=== PATIENT | female | born 1965 | race Caucasian/White ===

== ENCOUNTER 2017-04-04 09:02 | Outpatient (CLI) | payer BC ==
[~2017-04-04] VITALS: Ht 162.6 cm; Wt 79.4 kg
[~2017-04-04 09:02] MED LIST: ANUSOL PR; IBUPROPHEN PO; LIDOCAINE 2% INJ 100 MG/5 ML SDV (FOR ANES.) As Ordered ONE; MULT1TAB10 PO; NS 1,000 ML IV ONE; PROPOFOL 200 MG/20 ML VIAL As Ordered ONE; SYNT25TA PO; [UNRECOGNIZED DRUG - OTHER]; motrin PO; vicodin PO
--- NOTE | 2017-04-04 10:32 | ROOR ---
Patient Name: Ruth Ann Mccabe Procedure Date: 04/04/2017 10:16 AM Date of : 1965 Age: 51 Room: [facility] Gender: Female Note Status: Finalized Procedure: Colonoscopy Indications: Screening for colorectal malignant neoplasm Providers: Dariel Stapleton Jr, MD Referring MD: Lenora Siddiqui DO Requesting Provider: Medicines: Propofol per Anesthesia Complications: No immediate complications. Procedure: Pre-Anesthesia Assessment: - Prior to the procedure, a History and Physical was performed, and patient medications and allergies were reviewed. The patient is competent. The risks and benefits of the procedure and the sedation options and risks were discussed with the patient. All questions were answered and informed consent was obtained. Patient identification and proposed procedure were verified by the physician and the nurse in the pre-procedure area and in the procedure room. Mental Status Examination: alert and oriented. Airway Examination: normal oropharyngeal airway and neck mobility. Respiratory Examination: clear to auscultation. CV Examination: normal. ASA Grade Assessment: II - A patient with mild systemic disease. After reviewing the risks and benefits, the patient was deemed in satisfactory condition to undergo the procedure. The anesthesia plan was to use moderate sedation / analgesia (conscious sedation). Immediately prior to administration of medications, the patient was re-assessed for adequacy to receive sedatives. The heart rate, respiratory rate, oxygen saturations, blood pressure, adequacy of pulmonary ventilation, and response to care were monitored throughout the procedure. The physical status of the patient was re-assessed after the procedure. The Colonoscope was introduced through the anus and advanced to the cecum, identified by appendiceal orifice and ileocecal valve. The colonoscopy was performed without difficulty. The patient tolerated the procedure well. The quality of the bowel preparation was adequate and good. Findings: The rectum, sigmoid colon, descending colon, transverse colon, ascending colon, cecum, appendiceal orifice and ileocecal valve appeared normal. Impression: - The rectum, sigmoid colon, descending colon, transverse colon, ascending colon, cecum, appendiceal orifice and ileocecal valve are normal. - No specimens collected. Recommendation: - Discharge patient to home (ambulatory). - Repeat colonoscopy in 10 years for screening purposes. Dariel Stapleton MD Dariel Stapleton Jr, MD 04/04/2017 10:32:30 AM This report has been signed electronically. Number of Addenda: 0 Note Initiated On: 04/04/2017 10:16 AM Estimated Blood Loss: Estimated blood loss: none.
[2017-04-04 10:55] VITALS: BP 129/75
== END 2017-04-04 11:20 | disposition home or self-care (01) ==
LOC: M OPP 09:02
PROVIDERS: ATTEND Surgery
DX: Z12.11 Encounter for screening for malignant neoplasm of colon (principal); E03.9 Hypothyroidism, unspecified; E78.5 Hyperlipidemia, unspecified; Z88.8 Allergy status to other drugs, medicaments and biological substances; Z79.899 Other long term (current) drug therapy; Z80.9 Family history of malignant neoplasm, unspecified

== ENCOUNTER → 2018-04-09 | Outpatient (REF) | payer BC ==
[2018-04-09 18:16] LABS: VITAMIN B12 LEVEL 422 PG/ML (247-911)
== END ==
LOC: M LAB REF 17:24
DX: R20.2 Paresthesia of skin (principal)

== ENCOUNTER → 2018-10-16 | Outpatient (REF) | payer BC ==
[~2018-10-16] MED LIST changes: -LIDOCAINE 2% INJ 100 MG/5 ML SDV (FOR ANES.) As Ordered ONE; -NS 1,000 ML IV ONE; -PROPOFOL 200 MG/20 ML VIAL As Ordered ONE
[2018-10-16 17:59] LABS: INFLUENZA A AMPLIFICATION POSITIVE (NEGATIVE); INFLUENZA B AMPLIFICATION NEGATIVE (NEGATIVE)
[2018-10-19 09:09] LABS: ANTINUCLEAR ANTIBODIES DIRECT Negative (Negative); CYCLIC CITRULLINATED PEPTIDE 6 units (0-19)
== END ==
LOC: M LAB REF 16:39
PROVIDERS: ATTEND Internal Medicine
DX: M25.50 Pain in unspecified joint (principal); R05 Cough; R50.9 Fever, unspecified

== ENCOUNTER → 2019-06-01 | Outpatient (REF) | payer BC ==
[2019-06-03 00:07] LABS: ANTINUCLEAR ANTIBODIES DIRECT Negative (Negative); CYCLIC CITRULLINATED PEPTIDE 8 units (0-19)
== END ==
LOC: M LAB REF 12:48
PROVIDERS: ATTEND Internal Medicine
DX: M25.50 Pain in unspecified joint (principal)

== ENCOUNTER 2020-12-25 20:48 | Inpatient (IN) | payer BC ==
[~2020-12-25] VITALS: Ht 162.6 cm; Wt 86.1 kg
[2020-12-25] MEDS ORDERED: METF-839 PO (20:57)
[2020-12-25] MEDS ORDERED: IBUP200C27 PO (21:02)
[2020-12-25] MEDS ORDERED: PEARCAP PO (21:02)
[2020-12-25 22:13] LABS: BASO # 0.1 10^3/uL (0.0-0.2); BASO % 0.4 % (0.0-1.0); EOS # 0.1 10^3/uL (0.0-0.5); EOS % 0.9 % (0.0-3.0); HEMATOCRIT 40.3 % (36.0-47.0); LYMPH # 1.9 10^3/uL (1.5-5.0); LYMPH % 14.5 % (24.0-44.0); MEAN CORPUSCULAR HEMOGLOBIN 28.6 pg (27.0-33.0); MEAN CORPUSCULAR HGB CONC 32.3 g/dl (32.0-36.5); MEAN CORPUSCULAR VOLUME 88.6 fl (80.0-96.0); MONO # 0.9 10^3/uL (0.0-0.8); MONO % 6.7 % (2.0-8.0); NEUTROPHILS % 77.2 % (36.0-66.0); PLATELET COUNT, AUTOMATED 258 10^3/uL (150-450); RED BLOOD COUNT 4.55 10^6/uL (4.00-5.40); WHITE BLOOD COUNT 12.9 10^3/uL (4.0-10.0)
[2020-12-25 22:38] LABS: ALBUMIN 4.3 GM/DL (3.2-5.2); ALT/SGPT 51 U/L (12-78); BILIRUBIN,DIRECT 0.1 MG/DL (0.0-0.2); BILIRUBIN,TOTAL 0.3 MG/DL (0.2-1.0); BLOOD UREA NITROGEN 13 MG/DL (7-18); CALCIUM LEVEL 10.1 MG/DL (8.5-10.1); CARBON DIOXIDE LEVEL 25 MEQ/L (21-32); CHLORIDE LEVEL 104 MEQ/L (98-107); CREATININE FOR GFR 0.95 MG/DL (0.55-1.30); GLOMERULAR FILTRATION RATE > 60.0 (>51); GLUCOSE, FASTING 174 MG/DL (70-100); LIPASE 53 U/L (73-393); POTASSIUM SERUM 3.6 MEQ/L (3.5-5.1); SODIUM LEVEL 138 MEQ/L (136-145); TOTAL PROTEIN 7.7 GM/DL (6.4-8.2)
[2020-12-25] MEDS ORDERED: MORPHINE 4 MG/ML 1ML VIAL/SYRINGE (J2270) IV ONE (22:55)
[2020-12-25] MEDS ORDERED: LR 1,000 ML IV ONE (22:55)
[2020-12-25] MEDS ORDERED: METOCLOPRAMIDE INJ 10MG/2ML VIAL (J2765 PER 1) IV ONE (22:55)
[2020-12-25] MEDS ORDERED: ONDANSETRON 4MG/2ML VIAL IV ONE (22:55)
[2020-12-25] MEDS: GASTROGRAFIN SOLUTION 30ML PO SCH ×2 (23:46→23:52)
[2020-12-26] MEDS ORDERED: ISOVUE-370 76% 100ML VIAL As Ordered ONE (01:21)
[2020-12-26] MEDS ORDERED: MORPHINE 2 MG/ML 1ML VIAL (J2270) IV ONE ×2 (01:30→02:20)
[2020-12-26] MEDS ORDERED: ONDANSETRON 4MG/2ML VIAL IV ONE ×2 (02:15)
--- NOTE | 2020-12-26 02:40 | REPVR ---
PROCEDURE INFORMATION: Exam: CT Abdomen And Pelvis With Contrast Exam date and time: 12/26/2020 1:48 AM Age: 55 years old Clinical indication: Abdominal pain; Localized; Right lower quadrant (rlq); Additional info: Rlq pain / r/p appendicitis TECHNIQUE: Imaging protocol: Computed tomography of the abdomen and pelvis with contrast. Radiation optimization: All CT scans at this facility use at least one of these dose optimization techniques: automated exposure control; mA and/or kV adjustment per patient size (includes targeted exams where dose is matched to clinical indication); or iterative reconstruction. Contrast material: ISOVUE 370; Contrast volume: 100 ml; Contrast route: INTRAVENOUS (IV); COMPARISON: No relevant prior studies available. FINDINGS: Liver: Fatty infiltration of the liver with areas of focal fatty sparing the left hepatic lobe. Gallbladder and bile ducts: Normal. No calcified stones. No ductal dilation. Pancreas: Normal. No ductal dilation. Spleen: Normal. No splenomegaly. Adrenal glands: Normal. No mass. Kidneys and ureters: Right perinephric stranding. Moderate right hydronephrosis. Delayed right nephrogram. No renal abscess evident. Stone in the left ureteropelvic junction measuring 7 x 4 x 8 mm. Mild thickening of the right renal pelvis. No left hydronephrosis. Benign-appearing cyst in the midpole of the left kidney measuring 8 mm. Stomach and bowel: Small sliding-type gastric hiatal hernia. No abnormal bowel dilatation. No abnormal bowel wall thickening. Oral contrast in the stomach and bowel. Negative for colonic diverticulitis. Appendix: Appendix is normal. Intraperitoneal space: Unremarkable. No free air. No significant fluid collection. Vasculature: Multiple phleboliths in the pelvis. No aortic aneurysm. Lymph nodes: Unremarkable. No enlarged lymph nodes. Urinary bladder: Bladder is decompressed. Reproductive: Status post hysterectomy. Bones/joints: Mild degenerative spine. No acute fracture. Soft tissues: Asymmetric glandular tissue in the breasts, right greater than left. Small umbilical hernia containing fat. There is no evidence of strangulation. IMPRESSION: 1. Acute obstructive right uropathy with ureteropelvic junction stone. 2. Mild thickening of the right renal pelvis. Suspicious for UTI. 3. Benign-appearing cyst in the lower pole of the left kidney. No follow-up is necessary. 4. Fatty infiltration of the liver with areas of focal fatty sparing the left hepatic lobe. 5. Asymmetric glandular tissue in the breasts, right greater than left. No definite mass lesion evident. Correlate with routine follow-up screening mammogram. COMMENTS: Consistent with the [employer]'s Incidental Findings Committee white paper (J Am Blake Radiol 2018): Any incidental renal lesion less than 1 cm or classified as too small to characterize, or any incidental cystic renal lesion characterized as simple-appearing, is likely benign. No follow-up imaging is recommended for these lesions per consensus recommendations based on imaging criteria. Electronically signed by: Miriam Esquivel On 12/26/2020 02:39:20 AM
[2020-12-26] MEDS ORDERED: NS 1,000 ML IV SCH ×2 (02:50→03:10)
[2020-12-26] MEDS ORDERED: TAMSULOSIN 0.4 MG CAP PO ONE (02:50)
[2020-12-26] MEDS ORDERED: KETOROLAC 30 MG/ML 1ML VIAL IV ONE (02:50)
[2020-12-26] MEDS ORDERED: CIPROFLOXACIN 400 MG in IV 1 EA IV ONE (03:05)
[2020-12-26] MEDS ORDERED: MAALOX 30 ML SUSP *UDC PO PRN (03:10)
[2020-12-26] MEDS ORDERED: MOM 30ML SUSPENSION UDC PO PRN (03:10)
[2020-12-26] MEDS ORDERED: ONDANSETRON 4MG/2ML VIAL IV PRN ×2 (03:10→05:30)
[2020-12-26] MEDS ORDERED: GLUCAGON INJ 1MG VIAL SC PRN (03:10)
[2020-12-26] MEDS ORDERED: MORPHINE 2 MG/ML 1ML VIAL (J2270) IV PRN (03:10)
[2020-12-26] MEDS ORDERED: DEXTROSE 50% 50 ML SYRINGE IV PRN (03:10)
[2020-12-26] MEDS ORDERED: ACETAMINOPHEN TAB 650MG DOSE (2X325MG) PO PRN (03:10)
[2020-12-26] MEDS ORDERED: GLUCOSE 4GM CHEW TABLET PO PRN (03:10)
--- NOTE | 2020-12-26 03:13 | HPEPDOC ---
[facility] Medical History & Physical Date of Admission Dec 26, 2020 Date of Service: Dec 26, 2020 Primary Care Physician: HARMONY COELLO DO Attending Physician: CHICO LACEY MD History and Physical TIME OF SERVICE: 400am CHIEF COMPLAINT: pain HISTORY OF PRESENT ILLNESS: This 55 yr old F presented w c/o 06/11 in severity RLQ abdominal pain that radiated to her back that begun on the and was associated with fever and 7 episodes of vomiting. She denied having a fever. REVIEW OF SYSTEMS: 12-point review of systems negative except as listed in HPI PAST MEDICAL/ SURGICAL HISTORY: Denies HTN Hypothyroidism NIDDM DLP Fatty liver Class 1 obesity Hysterectomy w R oophorectomy SOCIAL HISTORY: She doesnt smoke FAMILY HISTORY: Mother who is had either cholelithiasis or nephrolithiasis ALLERGIES: Please see below. HOME MEDICATIONS: Please see below. PHYSICAL EXAMINATION: Vital Signs Date Time Temp Pulse Resp B/P (MAP) Pulse Ox O2 Delivery O2 Flow Rate FiO2 12/25/20 20:49 97.8 83 20 180/90 (120) 97 12/25/20 23:08 Room Air 12/26/20 03:07 2.0 GENERAL APPEARANCE: well nourished and developed /NAD HEENT: EOMI / MM pink but slightly dry CARDIOVASCULAR: tachycardic /NMRG LUNGS: CTAB on RA ABDOMEN: obese/ soft & tender with deep palpation of the right lower quadrant MUSCULOSKELETAL: NCAT / NIGEL x 4 INTEGUMENT: slightly pale /not flushed or diaphoretic NEUROLOGICAL: CN 2-12 intact /speech not dysarthric PSYCHIATRIC: A&Ox 3 /able to understand and follow all commands LABORATORY DATA: Immature Granulocyte % (Auto) 0.3, Neutrophils (%) (Auto) 77.2H, Lymphocytes (%) (Auto) 14.5L, Monocytes (%) (Auto) 6.7, Eosinophils (%) (Auto) 0.9, Basophils (%) (Auto) 0.4, Neutrophils # (Auto) 10.0H, Lymphocytes # (Auto) 1.9, Monocytes # (Auto) 0.9H, Eosinophils # (Auto) 0.1, Basophils # (Auto) 0.1, Nucleated Red Blood Cells % (auto) 0.0, Urine Color YELLOW, Urine Appearance TURBIDH, Urine pH 7.0, Urine Specific [place] 1.012, Urine Protein 1+H, Urine Glucose (UA) NEGATIVE, Urine Ketones NEGATIVE, Urine Blood 1+H, Urine Nitrite NEGATIVE, Urine Bilirubin NEGATIVE, Urine Urobilinogen 0.2, Urine Leukocyte Esterase 2+H, Urine WBC (Auto) 101H, Urine RBC (Auto) 7H, Urine Hyaline Casts (Auto) 0, Urine Bacteria (Auto) NEGATIVE, Urine Squamous Epithelial Cells 0, Urine Amorphous Sediment SMALLH, Urine Sperm (Auto) , Anion Gap 9, Glomerular Filtration Rate > 60.0, Calcium Level 10.1, Total Bilirubin 0.3, Direct Bilirubin 0.1, Aspartate Amino Transf (AST/SGOT) 32, Alanine Aminotransferase (ALT/SGPT) 51, Alkaline Phosphatase 91, Total Protein 7.7, Albumin 4.3, Albumin/Globulin Ratio 1.3, Lipase 53L POC Glucose (Misc Panel) 170H, POC Sodium (Misc Panel) 138, POC Potassium (Misc Panel) 3.5, POC Chloride (Misc Panel) 103, POC Total CO2 (Misc Panel) 25.0, POC Blood Urea Nitrogen (Misc Panel 12, POC Ionized Calcium (Misc Panel) 4.8, POC Creatinine (Misc Panel) 0.9, POC Hematocrit (Misc Panel) 41.0 12/25/20 23:39: Lactic Acid Level 2.0 IMAGING: CTabd/pelvis IMPRESSION:1. Acute obstructive right uropathy with ureteropelvic junction stone. 2. Mild thickening of the right renal pelvis. Suspicious for UTI. 3. Benign-appearing cyst in the lower pole of the left kidney. No follow-up is necessary. 4. Fatty infiltration of the liver with areas of focal fatty sparing the left hepatic lobe. 5. Asymmetric glandular tissue in the breasts, right greater than left. No definite mass lesion evident. Correlate with routine follow-up screening mammogram. MICROBIOLOGY: UCx and COVID pending ASSESSMENT: is a 55 yr old w a hx of NIDDM, DLP, fatty liver, obesity who presented w c/o RLQ abdominal pain and was found to have an obstructing ureteropelvic stone and will go to the OR this morning. PLAN: 1. obstructing ureteropelvic stone Plan: admit to [facility] after going to OR per / NPO / IVF / morphine Zofran 2 cystitis Plan: c/w ciprofloxacin pending UCx 3 possible HTN Plan: monitor vitals once stone has been removed 4 R breast lesion Plan: f/u w PCP for henny 5 NIDDM Plan: diabetic diet / f/u accuchecks / hypoglycemia protocol / sliding scale insulin / hold oral anti-glycemic / f/u A1C (target A1C is <7 to 6.5% 7 Hypothyroidism Plan: levothyroxine 8 Class 1 obesity She has DM & Fatty liver Complicates care Plan: f/u w PCP for diet and exer recs DVT px w SCDs Dispo: home after at least 2 midnights stay Home Medications Scheduled Lactobacillus Combo No.13 (Probiotic Pearls Complete) 1 Each Capsule.dr, 1 CAP PO QHS Levothyroxine Sodium (Synthroid) 50 Mcg Tablet, 50 MCG PO DAILY Metformin HCl (Metformin HCl) 500 Mg Tablet, 500 MG PO DAILY Scheduled PRN Ibuprofen (Ibuprofen) 200 Mg Capsule, 400 MG PO Q8H PRN for PAIN Allergies Coded Allergies: zolpidem (Verified Allergy, Intermediate, RASH, 11/28/18) A-FIB/CHADSVASC A-FIB History Current/History of A-Fib/PAF?: No Current PO Anticoag Therapy: No CHICO LACEY MD Dec 26, 2020 03:13
[2020-12-26] MEDS ORDERED: SYNT50TA PO (03:21)
[2020-12-26 04:27] LABS: RSV AMPLIFICATION NEGATIVE (NEGATIVE)
--- NOTE | 2020-12-26 04:54 | SMCUROLCON ---
Urology Consultation General Date of Consultation 12/26/20 Reason For Consultation This patient is seen for Ureterolithiasis. History of Present Illness The patient is a 55-year-old female who was in her usual state of health until 4 PM today when she began having some right lower back pain and right lower quadrant pain. She finally presented to the emergency room where CT scan showed she has an 8 mm calculus in the right UPJ causing hydronephrosis. Also some thickening of the renal pelvis consistent with a infection. She is diabetic and has a high wet cell count and urology consult was called to help care for this. She has no past history of renal calculi or kidney disease. Past Medical History Medical History Type 2 diabetes Hypothyroidism Surgical Hstory 2002 Hysterectomy in 2011 Social History * Smoker: non-smoker Alcohol: Denies Medications Current Medications Current Medications Medications (Trade) Dose Ordered Sig/Octaviano Route PRN Reason Start Time Stop Time Status Last Admin Dose Admin Acetaminophen (Tylenol Tab) 650 mg Q4H PRN PO MILD PAIN OR FEVER 12/26/20 03:10 Al Hydrox/Mg Hydrox/Simethicone (Mylanta) 30 ml DAILY PRN PO DYSPEPSIA 12/26/20 03:10 Ceftriaxone Sodium 1 gm/ Dextrose 50 ml @ 100 mls/hr Q24H IV 12/26/20 06:00 12/26/20 04:31 DC Dextrose (Dextrose 50%) 25 ml ASDIRECTED PRN IV SEE LABEL COMMENTS 12/26/20 03:10 Diatrizoate Meglum/ Diatrizoate Sod (Gastrografin) 10 ml Q30M PO 12/25/20 23:30 12/26/20 00:01 DC 12/25/20 23:52 Glucagon (Glucagon) 1 mg ASDIRECTED PRN SC SEE LABEL COMMENTS 12/26/20 03:10 Glucose (Glucose) 16 GM ASDIRECTED PRN PO SEE LABEL COMMENTS 12/26/20 03:10 Home Med (Med Rec Complete!) ASDIRECTED XX 12/26/20 03:25 12/26/20 03:24 DC Insulin Human Lispro (HumaLOG INSULIN) See Protocol Table Q6H SC 12/26/20 06:00 Magnesium Hydroxide (Milk Of Magnesia) 30 ml DAILY PRN PO CONSTIPATION 12/26/20 03:10 Morphine Sulfate (Morphine Sulfate Inj) 2 mg Q2H PRN IV MODERATE/SEVERE PAIN (PS 5-10) 12/26/20 03:10 Ondansetron HCl (ZOFRAN INJection) 4 mg Q4HP PRN IV NAUSEA OR VOMITING 12/26/20 03:10 Sodium Chloride 1,000 ml @ 100 mls/hr Q10H IV 12/26/20 03:10 Sodium Chloride 1,000 ml @ 999 mls/hr Q1H1M IV 12/26/20 02:50 12/26/20 03:13 DC 12/26/20 03:03 Allergies Allergies: Coded Allergies: zolpidem (Verified Allergy, Intermediate, RASH, 11/28/18) Review of Systems General: Reports: Normal Appetite; Denies: Fatigue, Malaise Constitutional: Denies: Fever, Chills, Sweats, Weakness, Malaise Eyes: Denies: Pain, Vision change ENT: Denies: Head Aches, Sore Throat, Epistaxis Skin: Denies: Rash, Lesions, Jaundice, Bruising, Itching, Dry, Breakdown, Nail Changes, Other Pulmonary: Denies: Dyspnea, Cough Cardiovascular: Denies Chest Pain, Denies Palpitations Gastrointestinal: Denies: Nausea, Vomiting, Abdominal Pain Genitourinary: Denies: Dysuria, Frequency, Incontinence, Hematuria Hematologic: Denies: Bruising, Bleeding Excessively Endocrine: Denies: Polydipsia, Polyphagia, Polyuria Musculoskeletal: Denies: Neck Pain, Back Pain Neurological: Denies: Weakness, Numbness, Incoordination, Change in Speech Psych: Reports: Mood Normal; Denies: Anxiety, Depression Physical Examination General Exam: Alert, No Acute Distress EYE EXAM: PERRLA, Conjunctiva & lids normal, EOMI; No: Sclera icteric ENT EXAM: Atraumatic, Mucous membr. moist/pink, Pharynx Normal Neck Exam: Supple; No: JVD, thyromegaly Chest Exam: Clear to auscultation, Normal air movement Heart Exam: Rate Normal, Regular Rhythm, Normal S1, Normal S2; No: Murmurs, Rubs Abdomen Exam: Other Extremity Exam: Normal Pulses; No: Clubbing, Cyanosis, Edema Skin Exam: Nl turgor and temperature; No: Rash, Breakdown Neuro Exam: Normal Gait, Normal Speech, Cranial Nerves 3-12 NL, Reflexes 2+ Psych Exam: Mental status NL, Mood NL, Oriented x 3 Vital Signs/I&O Vital Signs Date Time Temp Pulse Resp B/P (MAP) Pulse Ox O2 Delivery O2 Flow Rate FiO2 12/26/20 03:07 20 98 Nasal Cannula 2.0 12/26/20 02:28 12/26/20 02:28 98.2 89 I&O- Last 24 Hours up to 6 AM 12/26/20 06:00 Intake Total 1000 ml Balance 1000 ml Laboratory Data 24H Labs Laboratory Tests 2 12/25/20 22:02: Immature Granulocyte % (Auto) 0.3, Neutrophils (%) (Auto) 77.2H, Lymphocytes (%) (Auto) 14.5L, Monocytes (%) (Auto) 6.7, Eosinophils (%) (Auto) 0.9, Basophils (%) (Auto) 0.4, Neutrophils # (Auto) 10.0H, Lymphocytes # (Auto) 1.9, Monocytes # (Auto) 0.9H, Eosinophils # (Auto) 0.1, Basophils # (Auto) 0.1, Nucleated Red Blood Cells % (auto) 0.0, Urine Color YELLOW, Urine Appearance TURBIDH, Urine pH 7.0, Urine Specific [place] 1.012, Urine Protein 1+H, Urine Glucose (UA) NEGATIVE, Urine Ketones NEGATIVE, Urine Blood 1+H, Urine Nitrite NEGATIVE, Urine Bilirubin NEGATIVE, Urine Urobilinogen 0.2, Urine Leukocyte Esterase 2+H, Urine WBC (Auto) 101H, Urine RBC (Auto) 7H, Urine Hyaline Casts (Auto) 0, Urine Bacteria (Auto) NEGATIVE, Urine Squamous Epithelial Cells 0, Urine Amorphous Sediment SMALLH, Urine Sperm (Auto) , Anion Gap 9, Glomerular Filtration Rate > 60.0, Calcium Level 10.1, Total Bilirubin 0.3, Direct Bilirubin 0.1, Aspartate Amino Transf (AST/SGOT) 32, Alanine Aminotransferase (ALT/SGPT) 51, Alkaline Phosphatase 91, Total Protein 7.7, Albumin 4.3, Albumin/Globulin Ratio 1.3, Lipase 53L 12/25/20 22:08: POC Glucose (Misc Panel) 170H, POC Sodium (Misc Panel) 138, POC Potassium (Misc Panel) 3.5, POC Chloride (Misc Panel) 103, POC Total CO2 (Misc Panel) 25.0, POC Blood Urea Nitrogen (Misc Panel 12, POC Ionized Calcium (Misc Panel) 4.8, POC Creatinine (Misc Panel) 0.9, POC Hematocrit (Misc Panel) 41.0 12/25/20 23:39: Lactic Acid Level 2.0 12/26/20 03:44: Coronavirus (COVID-19)(PCR) NEGATIVE, Influenza Type A (RT-PCR) NEGATIVE, Influenza Type B (RT-PCR) NEGATIVE, Respiratory Syncytial Virus (PCR) NEGATIVE CBC/BMP Laboratory Tests 12/25/20 22:02 Microbiology Microbiology 12/25/20 Urine Culture, Received Pending Assessment 8 mm right UPJ calculus with hydronephrosis Plan Patient was taken to the operating room for stent insertion. The stomach and then retreated later with ureteroscopic laser lithotripsy or ESWL. Time Spent on Consult: Time Spent / Consult (Minutes): 65 ALFRED DUBON MD Dec 26, 2020 04:54
[2020-12-26] MEDS ORDERED: CONRAY-60 60% 50ML VIAL (Q9961) As Ordered ONE (05:01)
[2020-12-26] MEDS ORDERED: fentaNYL 100 MCG/2 ML INJECTION (J3010) As Ordered ONE (05:11)
[2020-12-26] MEDS ORDERED: propofoL 200 MG/20 ML VIAL As Ordered ONE (05:11)
[2020-12-26] MEDS ORDERED: MIDAZOLAM INJ 2MG/2ML VIAL (J2250 PER 1MG) As Ordered ONE (05:11)
--- NOTE | 2020-12-26 05:23 | ROOPDOC ---
[facility] Report Of Operation Report of Operation DATE OF PROCEDURE: 12/26/20 PREPROCEDURE DIAGNOSES: Right UPJ calculus with hydronephrosis POSTPROCEDURE DIAGNOSES: Same PROCEDURE: Cystoscopy, right retrograde pyelogram, stent insertion, fluoroscopy with x-ray interpretation SURGEON: Ady Bender MD INDUSTRIAL RELATIONS REPRESENTATIVE: None ANESTHESIA: Mac ESTIMATED BLOOD LOSS: Approximately 0 mL. COMPLICATIONS: None REMARKS: Obstructing right UPJ calculus. Patient will need ureteroscopic laser lithotripsy or ESWL at a later date PROCEDURE NOTE: Patient was taken to the operating room for an urgent since insertion because of obstructing calculus, possible infection behind the stone with thickening of the renal pelvis, white cells in the urine and elevated white cell count with diabetes DESCRIPTION OF PROCEDURE: The patient was placed on table in supine position, given Mac anesthesia, placed in lithotomy position, prepped with Betadine paint, draped in aseptic manner and timeout was performed. A #21 Faroese cystoscope was inserted into the meatus and advanced under direct vision of a 30 lens of the bladder. The mucosa was normal. The right ureteral orifice was then catheterized with a 5 Faroese open-ended catheter and retrograde injection of Conray showed an obstruction at the right UPJ with hydronephrosis. A wire guide was then passed up to the renal pelvis over which a 6 Faroese double-J stent was passed. This curled well in the renal pelvis and in the bladder when the wire was removed. The bladder was then drained, cystoscope was removed and the patient was awakened and sent to recovery room in stable condition having tolerated the procedure well. Fluoroscopy and interpretation was performed throughout the case to diagnose the patient and place the ureteral stent. The patient will need follow-up ureteroscopic laser lithotripsy or ESWL of right renal calculus. ADY BENDER MD Dec 26, 2020 05:23
[2020-12-26] MEDS ORDERED: fentaNYL 100 MCG/2 ML INJECTION (J3010) IV PRN (05:30)
[2020-12-26] MEDS ORDERED: LR 1,000 ML IV SCH (05:30)
[2020-12-26] MEDS ORDERED: cefTRIAXone SOD 1 GM in D5W MINI-BAG PLUS 50 ML IV SCH (06:00)
[2020-12-26] MEDS ORDERED: HumaLOG INSULIN (NovoLOG) PER UNIT SC SCH (06:00)
--- NOTE | 2020-12-26 06:45 | ECGEPIP ---
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
[2020-12-26 07:42] LABS: HEMATOCRIT 37.8 % (36.0-47.0); HEMOGLOBIN 12.2 g/dl (12.0-15.5); MEAN CORPUSCULAR HEMOGLOBIN 28.6 pg (27.0-33.0); MEAN CORPUSCULAR HGB CONC 32.3 g/dl (32.0-36.5); MEAN CORPUSCULAR VOLUME 88.7 fl (80.0-96.0); PLATELET COUNT, AUTOMATED 186 10^3/uL (150-450); RED BLOOD COUNT 4.26 10^6/uL (4.00-5.40); WHITE BLOOD COUNT 11.8 10^3/uL (4.0-10.0)
[2020-12-26 07:59] LABS: HEMOGLOBIN A1c 6.2 %
[2020-12-26 08:00] VITALS: BP 105/71
[2020-12-26 08:01] LABS: CALCIUM LEVEL 8.9 MG/DL (8.5-10.1); CREATININE FOR GFR 1.13 MG/DL (0.55-1.30); POTASSIUM SERUM 3.2 MEQ/L (3.5-5.1)
[2020-12-26 08:42] VITALS: BP 105/69
[2020-12-26] MEDS ORDERED: POTASSIUM CHLORIDE 10 MEQ SR TABLET PO ONE (08:45)
[2020-12-26] MEDS ORDERED: LACTOBACILLUS ACIDOPHILUS CAP (BACID) PO SCH (09:00)
[2020-12-26] MEDS ORDERED: LEVOTHYROXINE 50MCG TABLET (0.05MG) PO SCH (09:00)
--- NOTE | 2020-12-26 09:15 | REP ---
INDICATION: SURGERY. COMPARISON: Comparison CT study 26 December 2020.. TECHNIQUE: Single-view. 23 seconds of fluoroscopy time is reported. FINDINGS: A single last image hold fluoroscopically obtained spot radiograph of the abdomen document right ureteral cannulation contrast injection and stent placement. IMPRESSION: Procedural imaging. <Electronically signed by Wilmer Watt > 12/26/20 0937
[2020-12-26 09:47] VITALS: BP 106/69
[2020-12-26 11:00] VITALS: BP 107/70
[2020-12-26] MEDS ORDERED: CIPR-249 PO (11:15)
--- NOTE | 2020-12-26 15:23 | DS.PDOC ---
Discharge Summary General Date of Admission Dec 26, 2020 at 03:07 Date of Discharge 12/26/2020 Primary Care Physician: HARMONY COLELO DO Attending Physician: GEOVANNI DOMÍNGUEZ MD Specialist/Consultants Involve: ALFRED BENDER MD Discharge Summary PROCEDURES PERFORMED DURING STAY: Cystoscopy, right retrograde pyelogram, stent insertion, fluoroscopy with x-ray interpretation ADMITTING DIAGNOSES: 1. obstructing ureteropelvic stone 2. cystitis 3. possible HTN 4. R breast lesion 5. NIDDM 7. Hypothyroidism 8. Class 1 obesity DISCHARGE DIAGNOSES: 1. obstructing ureteropelvic stone 2. cystitis 3. possible HTN 4. R breast lesion 5. NIDDM 7. Hypothyroidism 8. Class 1 obesity COMPLICATIONS/CHIEF COMPLAINT: Ureterolithiasis. HISTORY OF PRESENT ILLNESS: Patient is a 55 y/o F with hx of DM2, hypothyroidism, fatty liver and dyslipidemia presenting to the ED c/o RLQ pain. Her symptoms first started on morning of 12/24 when patient was doing yard work. She tried managing her pain with 2 doses of ibuprofen and hot/cold pack. However, her pain further worsened on 12/25 around 3-4pm, she developed 10/10 RLQ pain with radiation the her R flank, prompting patient to visit ED. She described pain as dense and throbbing. Upon arrival in the ED, patient further developed nausea, vomiting x7 (without blood) and chills. She denied associated CP, SOB, diarrhea and urinary symptoms. Patient denied previous history of kidney stone but noted her youngest sister does have hx of recurrent kidney stones. In the ED, patient's CT abd/pelvis with IV and oral contrast showed "CTabd/pelvis Acute obstructive right uropathy with ureteropelvic junction stone. 2. Mild thickening of the right renal pelvis. Suspicious for UTI. 3. Benign-appearing cyst in the lower pole of the left kidney. No follow-up is necessary. 4. Fatty infiltration of the liver with areas of focal fatty sparing the left hepatic lobe. 5. Asymmetric glandular tissue in the breasts, right greater than left. No definite mass lesion evident. Correlate with routine follow-up screening mammogram. UA showed 2+ leukocyte esterase and elevated WBC (101) without bacteria or nitrite. Patient was admitted under hospitalist service with plan for surgery with Dr. Bender (Urology). She received a dose of IV ciprofloxacin in the ED. HOSPITAL COURSE: While admitted, patient was taken to the OR by Dr. Bender (Urology) and underwent cystoscopy, right retrograde pyelogram, stent insertion and fluoroscopy with x-ray interpretation. S/p the procedure, patient reported her pain has improved from 10/10 to 3/10. She had no fever but her temperature did rise to 99.8. She denied associated chills, CP, SOB, N/V/D and cough, but noted hematuria (reddish orange urine) after her procedure. Her WBC also trended down from 12.9 to 11.8 after the procedure. Her potassium was 3.2 post-procedure and was repleted. Patient was subsequently stable for discharge with ciprofloxacin and outpatient follow up with urology for lithotripsy (laser vs. extracorporeal shock wave). Of note, patient's CT abd reported R>L asymmetric glandular tissue in the breasts and will require outpatient follow up. DISCHARGE MEDICATIONS: Please see below. ALLERGIES: Please see below. PHYSICAL EXAMINATION ON DISCHARGE: VITAL SIGNS: See below GENERAL APPEARANCE: Revealed 55 y/o F alert & oriented x3, in mild distress due to pain. HEENT Exam: Normocephalic and atraumatic, PERRLA, conjunctiva & lids normal, EOMI, anicteric sclera, dry mucous membrane, pharynx normal, nares patent. NECK: Supple without lymphadenopathy, JVD, thyromegaly LUNGS: Fine inspiratory crackles noted bilaterally in mid and lower lung burrows. Upper lung burrows clear to auscultation bilaterally. CARDIOVASCULAR: Regular rate and rhythm, normal S1 & S2 without gallops, murmurs, rubs ABDOMEN: Soft, non-tender, non-distended with normal bowel sounds. No masses or ecchymosis or hepatosplenomegaly. No CVA tenderness. EXTREMITIES: 2+ pulses in all extremities. No clubbing, cyanosis, edema, tenderness SKIN: Normal turgor and temperature. No rash, lesion MUSCULOSKELETAL: Moving all 4 extremities. NEUROLOGICAL: Normal speech with intact sensation, cranial nerves III-XII normal, reflexes 2+, Babinski sign negative. PSYCHIATRIC: Normal mood and affect LABORATORY DATA: Please see below. IMAGING: CT abd/pelvis with oral and IV contrast on 12/26 reported as: 1. Acute obstru ctive right uropathy with ureteropelvic junction stone. 2. Mild thickening of the right renal pelvis. Suspicious for UTI. 3. Benign-appearing cyst in the lower pole of the left kidney. No follow-up is necessary. 4. Fatty infiltration of the liver with areas of focal fatty sparing the left hepatic lobe. 5. Asymmetric glandular tissue in the breasts, right greater than left. No definite mass lesion evident. Correlate with routine follow-up screening mammogram. PROGNOSIS: Good ACTIVITY: As tolerated DIET: Regular, as tolerated DISCHARGE PLAN: Patient was discharged with ciprofloxacin and outpatient follow up with urology for lithotripsy (laser vs. extracorporeal shock wave). Of note, patient's CT abd reported R>L asymmetric glandular tissue in the breasts and will require outpatient follow up. DISPOSITION: 01 Home, Self-Care. DISCHARGE INSTRUCTIONS: 1. Please follow up with Dr. Bender (Urology) on 01/02 11am 2. Please follow up with your primary care doctor in 1 week 3. Please start taking ciprofloxacin 500mg twice daily for 5 days (last dose on 12/30) ITEMS TO FOLLOWUP ON ON OUTPATIENT: 1. Patient was discharged with ciprofloxacin and outpatient follow up with urology for lithotripsy (laser vs. extracorporeal shock wave). Of note, patient's CT abd reported R>L asymmetric glandular tissue in the breasts and will require outpatient follow up. DISCHARGE CONDITION: Stable. TIME SPENT ON DISCHARGE: Greater than 35 minutes. Vital Signs/I&Os Vital Signs Date Time Temp Pulse Resp B/P (MAP) Pulse Ox O2 Delivery O2 Flow Rate FiO2 12/26/20 11:00 98.0 95 16 107/70 (82) 91 Room Air 12/26/20 07:00 2.0 I&O- Last 24 Hours up to 6 AM 12/26/20 06:00 Intake Total 1200 ml Output Total 0 ml Balance 1200 ml Laboratory Data Labs 24H Laboratory Tests 2 12/25/20 22:02: Immature Granulocyte % (Auto) 0.3, Neutrophils (%) (Auto) 77.2H, Lymphocytes (%) (Auto) 14.5L, Monocytes (%) (Auto) 6.7, Eosinophils (%) (Auto) 0.9, Basophils (%) (Auto) 0.4, Neutrophils # (Auto) 10.0H, Lymphocytes # (Auto) 1.9, Monocytes # (Auto) 0.9H, Eosinophils # (Auto) 0.1, Basophils # (Auto) 0.1, Nucleated Red Blood Cells % (auto) 0.0, Urine Color YELLOW, Urine Appearance TURBIDH, Urine pH 7.0, Urine Specific [place] 1.012, Urine Protein 1+H, Urine Glucose (UA) NEGATIVE, Urine Ketones NEGATIVE, Urine Blood 1+H, Urine Nitrite NEGATIVE, Urine Bilirubin NEGATIVE, Urine Urobilinogen 0.2, Urine Leukocyte Esterase 2+H, Urine WBC (Auto) 101H, Urine RBC (Auto) 7H, Urine Hyaline Casts (Auto) 0, Urine Bacteria (Auto) NEGATIVE, Urine Squamous Epithelial Cells 0, Urine Amorphous Sediment SMALLH, Urine Sperm (Auto) , Anion Gap 9, Glomerular Filtration Rate > 60.0, Calcium Level 10.1, Total Bilirubin 0.3, Direct Bilirubin 0.1, Aspartate Amino Transf (AST/SGOT) 32, Alanine Aminotransferase (ALT/SGPT) 51, Alkaline Phosphatase 91, Total Protein 7.7, Albumin 4.3, Albumin/Globulin Ratio 1.3, Lipase 53L 12/25/20 22:08: POC Glucose (Misc Panel) 170H, POC Sodium (Misc Panel) 138, POC Potassium (Misc Panel) 3.5, POC Chloride (Misc Panel) 103, POC Total CO2 (Misc Panel) 25.0, POC Blood Urea Nitrogen (Misc Panel 12, POC Ionized Calcium (Misc Panel) 4.8, POC Creatinine (Misc Panel) 0.9, POC Hematocrit (Misc Panel) 41.0 12/25/20 23:39: Lactic Acid Level 2.0 12/26/20 03:44: Coronavirus (COVID-19)(PCR) NEGATIVE, Influenza Type A (RT-PCR) NEGATIVE, Influenza Type B (RT-PCR) NEGATIVE, Respiratory Syncytial Virus (PCR) NEGATIVE 12/26/20 05:25: Bedside Glucose (Misc Panel) 130H 12/26/20 07:26: Nucleated Red Blood Cells % (auto) 0.0, Anion Gap 12, Glomerular Filtration Rate 53.0, Estimated Mean Plasma Glucose 131H, Hemoglobin A1c 6.2, Calcium Level 8.9 CBC/BMP Laboratory Tests 12/25/20 22:02 12/26/20 07:26 FSBS Laboratory Tests Test 12/26/20 05:25 Range/Units Bedside Glucose (Misc Panel) 130 70-105 MG/DL Microbiology Microbiology 12/25/20 Urine Culture, Received Pending Discharge Medications Scheduled Ciprofloxacin HCl (Cipro) 500 Mg Tablet, 500 MG PO BID Lactobacillus Combo No.13 (Probiotic Pearls Complete) 1 Each Capsule.dr, 1 CAP PO QHS, (Reported) Levothyroxine Sodium (Synthroid) 50 Mcg Tablet, 50 MCG PO DAILY, (Reported) Metformin HCl (Metformin HCl) 500 Mg Tablet, 500 MG PO DAILY, (Reported) Scheduled PRN Ibuprofen (Ibuprofen) 200 Mg Capsule, 400 MG PO Q8H PRN for PAIN, (Reported) Allergies Coded Allergies: zolpidem (Verified Allergy, Intermediate, RASH, 11/28/18) GME ATTESTATION GME ATTESTATION My faculty preceptor for this patient encounter was physically present during the encounter and was fully available. All aspects of the patient interview, examination, medical decision making process, and medical care plan development were reviewed and approved by the faculty preceptor. The faculty preceptor is aware and concurs with the plan as stated in the body of this note and will attest to such by his/her cosignature. CHAVEZ OTERO OMS-3 Dec 26, 2020 15:23
[2020-12-27] MEDS ORDERED: LevoFLOXacin 500 MG TABLET PO SCH (06:00)
== END 2020-12-26 12:30 | disposition home or self-care (01) | DRG 465 ==
LOC: M ED 20:48 → M ED INP 12-26 03:07 → ENRESERV 12-26 06:14 → M MS5PR 12-26 07:40
PROVIDERS: ADMIT Internal Medicine; ATTEND Internal Medicine
PROC: 0T768DZ Dilation of Right Ureter with Intraluminal Device, Via Natural or Artificial Opening Endoscopic (ICD-10-PCS; principal; 2020-12-26 03:15)
DX: N13.0 Hydronephrosis with ureteropelvic junction obstruction (principal); N30.90 Cystitis, unspecified without hematuria; K76.0 Fatty (change of) liver, not elsewhere classified; E03.9 Hypothyroidism, unspecified; E11.9 Type 2 diabetes mellitus without complications; E78.5 Hyperlipidemia, unspecified; E66.9 Obesity, unspecified; Z79.84 Long term (current) use of oral hypoglycemic drugs; Z79.899 Other long term (current) drug therapy; Z88.8 Allergy status to other drugs, medicaments and biological substances; Z20.822 Contact with and (suspected) exposure to COVID-19; Z68.32 Body mass index [BMI] 32.0-32.9, adult

== ENCOUNTER → 2021-01-11 | Outpatient (REF) | payer BC ==
[~2021-01-11] MED LIST changes: +CIPR-249 PO; +IBUP200C27 PO; +METF-839 PO; +PEARCAP PO; +SYNT50TA PO
== END ==
LOC: M SMT 13:02
PROVIDERS: ATTEND Nurse Practitioner Women's Health
DX: N39.0 Urinary tract infection, site not specified (principal)

== ENCOUNTER → 2021-01-27 | Outpatient (REF) | payer BC ==
[2021-01-27 17:33] LABS: HEMATOCRIT 41.1 % (36.0-47.0); HEMOGLOBIN 12.8 g/dl (12.0-15.5); MEAN CORPUSCULAR HGB CONC 31.1 g/dl (32.0-36.5); MEAN CORPUSCULAR VOLUME 89.9 fl (80.0-96.0); PLATELET COUNT, AUTOMATED 249 10^3/uL (150-450); RED BLOOD COUNT 4.57 10^6/uL (4.00-5.40); WHITE BLOOD COUNT 7.5 10^3/uL (4.0-10.0)
[2021-01-27 17:44] LABS: INR 0.87
[2021-01-27 17:45] LABS: PARTIAL THROMBOPLASTIN TIME 27.6 SECONDS (24.2-38.5)
[2021-01-27 18:06] LABS: BLOOD UREA NITROGEN 12 MG/DL (7-18); CALCIUM LEVEL 9.6 MG/DL (8.5-10.1); CARBON DIOXIDE LEVEL 29 MEQ/L (21-32); CHLORIDE LEVEL 105 MEQ/L (98-107); CREATININE FOR GFR 0.68 MG/DL (0.55-1.30); GLOMERULAR FILTRATION RATE > 60.0 (>51); GLUCOSE, FASTING 96 MG/DL (70-100); POTASSIUM SERUM 4.4 MEQ/L (3.5-5.1); SODIUM LEVEL 139 MEQ/L (136-145)
== END ==
LOC: M LABSMT 14:20
PROVIDERS: ATTEND Nurse Practitioner Women's Health
DX: N13.2 Hydronephrosis with renal and ureteral calculous obstruction (principal); Z01.818 Encounter for other preprocedural examination

== ENCOUNTER → 2021-01-27 | Outpatient (REF) | payer BC | LOC: M PLALAB 16:38 | PROVIDERS: ATTEND Nurse Practitioner Women's Health | DX: Z01.818 Encounter for other preprocedural examination (principal); N13.2 Hydronephrosis with renal and ureteral calculous obstruction ==

== ENCOUNTER → 2021-02-08 | Outpatient (CLI) | payer BC ==
[~2021-02-08] MED LIST changes: +ACET-907 PO
== END ==
LOC: M LABSMTC 12:05
PROVIDERS: ATTEND Anesthesiology
DX: Z01.812 Encounter for preprocedural laboratory examination (principal); Z20.822 Contact with and (suspected) exposure to COVID-19

== ENCOUNTER → 2021-02-08 | Outpatient (REF) | payer BC ==
[~2021-02-08] MED LIST changes: +CIPR250T3 PO; +HYDR-3713 PO; +OXYB5TAB10 PO; +PHEN-501 PO
[2021-02-08 15:24] LABS: APPEARANCE, URINE CLEAR (CLEAR); BACTERIA, URINE AUTO 2+ (NEGATIVE); BILIRUBIN, URINE AUTO NEGATIVE (NEGATIVE); BLOOD, URINE BLOOD 3+ (NEGATIVE); COLOR, URINE STRAW (YELLOW); GLUCOSE, URINE (UA) AUTO NEGATIVE (NEGATIVE); KETONE, URINE AUTO NEGATIVE (NEGATIVE); LEUKOCYTE ESTERASE, URINE AUTO 3+ (NEGATIVE); NITRITE, URINE AUTO NEGATIVE (NEGATIVE); PROTEIN, URINE AUTO 1+ mg/dL (NEGATIVE); RBC, URINE AUTO 6 /HPF (0-3); SPECIFIC GRAVITY URINE AUTO 1.003 (1.002-1.035); SQUAMOUS EPITHELIAL CELL UR AU 1 /HPF (0-6); UROBILINOGEN, URINE AUTO 0.2 mg/dL (0.0-2.0); WBC, URINE AUTO 22 /HPF (0-3)
== END ==
LOC: M PLALAB 12:12
PROVIDERS: ATTEND Urology
DX: Z01.818 Encounter for other preprocedural examination (principal); N13.2 Hydronephrosis with renal and ureteral calculous obstruction

== ENCOUNTER 2021-02-13 07:43 | Day surgery (SDC) | payer BC ==
[~2021-02-13] VITALS: Ht 162.6 cm; Wt 82.9 kg
[~2021-02-13 07:43] MED LIST changes: -CIPR250T3 PO; -HYDR-3713 PO; +LR 1,000 ML IV ONE; -OXYB5TAB10 PO; -PHEN-501 PO; +ceFAZolin SOD 2 GM in IV 1 EA IV ONE
[2021-02-13] MEDS ORDERED: MIDAZOLAM INJ 2MG/2ML VIAL (J2250 PER 1MG) As Ordered ONE (08:43)
[2021-02-13] MEDS ORDERED: fentaNYL 100 MCG/2 ML INJECTION (J3010) As Ordered ONE (08:43)
[2021-02-13] MEDS ORDERED: CONRAY-60 60% 50ML VIAL (Q9961) As Ordered ONE (09:10)
[2021-02-13] MEDS ORDERED: propofoL 200 MG/20 ML VIAL As Ordered ONE (09:40)
[2021-02-13] MEDS ORDERED: LIDOCAINE 2% 100MG/5ML SDV (FOR ANES.) As Ordered ONE (09:41)
[2021-02-13] MEDS ORDERED: ONDANSETRON 4MG/2ML VIAL As Ordered ONE (09:50)
[2021-02-13] MEDS ORDERED: KETOROLAC 60MG 2ML VIAL As Ordered ONE (09:50)
[2021-02-13] MEDS ORDERED: dexameTHASONE 4 MG/ML 1ML VIAL (J1100 PER 1MG) As Ordered ONE (09:50)
[2021-02-13] MEDS ORDERED: ACETAMINOPHEN 1000MG 100ML IV BTL (OFIRMEV) (J0131 PER 10MG) As Ordered ONE (09:50)
[2021-02-13] MEDS ORDERED: PHENYLephrine 500MCG 5ML (100MCG/ML) SYRINGE As Ordered ONE (10:00)
--- NOTE | 2021-02-13 10:33 | REP ---
INDICATION: RIGHT URETERAL STENT REPLACEMENT. COMPARISON: 12/26/2020. TECHNIQUE: Single AP view abdomen and pelvis. FINDINGS: A right ureteral stent is visualized. The proximal end is coiled in the region of the upper pole the right kidney and the distal end is coiled in the region of urinary bladder. IMPRESSION: 17 seconds of fluoroscopy time was utilized. <Electronically signed by Yang Carrizales > 02/13/21 [id number]
[2021-02-13] MEDS ORDERED: OXYB5TAB10 PO (10:41)
[2021-02-13] MEDS ORDERED: PHEN-501 PO (10:41)
[2021-02-13] MEDS ORDERED: HYDR-3713 PO (10:41)
[2021-02-13] MEDS ORDERED: CIPR250T3 PO (10:41)
[2021-02-13] MEDS: oxyCODONE 5MG TAB PO PRN ×2 (10:54→11:25)
[2021-02-13] MEDS ORDERED: LR 1,000 ML IV SCH (10:55)
[2021-02-13] MEDS ORDERED: fentaNYL 100 MCG/2 ML INJECTION (J3010) IV PRN (10:55)
[2021-02-13] MEDS ORDERED: ONDANSETRON 4MG/2ML VIAL IV PRN (10:55)
[2021-02-13 13:10] VITALS: BP 128/72
--- NOTE | 2021-02-14 14:05 | RO ---
OPERATIVE NOTE DATE OF OPERATION: 02/13/2021 PREOPERATIVE DIAGNOSIS: Right UPJ stone. POSTOPERATIVE DIAGNOSIS: Right UPJ stone and abnormal bladder mucosa. OPERATION PERFORMED: Cystoscopy, fluoroscopy, flexible ureteroscopy, laser lithotripsy, basket stone extraction, biopsy of abnormal ureteral mucosa for cytology as well as for permanent, ureteral stent removal/replacement (right side) SURGEON: Wood Lopez MD INSOLE PRESSER: INDICATION FOR SURGERY: A 55-year-old white female. Right UPJ stone. A stent was placed. Surgery was arranged. Informed consent was obtained. Risks were discussed such as infection, bleeding, pain, scarring, failure of surgery, injury to the urinary tract, risks of anesthesia and others. ANESTHESIA: General. COMPLICATIONS: None. SPECIMENS: 1. Urine cytology. 2. Abnormal ureteral mucosa biopsy. DRAINS: 6 Yi multi-length stent. COMPLICATIONS: None. ESTIMATED BLOOD LOSS: Minimal. DETAILS OF SURGERY: The surgery was done under antimicrobial coverage. I met with the patient in the preop area. Surgery was discussed. Questions were answered. Informed consent was obtained. The patient was brought to the urology room. General anesthesia was secured without difficulty. A timeout was performed. Dorsal lithotomy position. Well padded. Prepping and draping in the usual sterile fashion. Cystoscopy was performed with a rigid cystoscope. The stent on the right was pulled to the external urethral meatus with a rigid grasper. I was unable to pass a wire through it because of encrustation. Cystoscopy was performed again. The wire was passed up the ureter as seen using fluoroscopy. Fluoroscopy was used intermittently. Some images were saved. After passing the wire, the stent was removed. A second wire was advanced up the ureter. A flexible ureteroscope was then advanced over the second wire after which the wire was removed. The stone was encountered at the UPJ. Initially abnormal mucosa was encountered. My impression was transitional cell carcinoma. Again, a stone was noted. It was surrounded by the abnormal mucosa. Laser lithotripsy was performed. The stone fragmented well. The mucosa in the area was white and shaggy. Initially my impression was transitional cell carcinoma though after the stone was fragmented, the tissue did not resemble papillary tumor. A biopsy of the tissue was obtained using a Piranha biopsy forceps. The initial specimen was very small. It was put in a container of normal saline. It was sent for cytology. Another specimen was obtained. It was larger. I removed the biopsy forceps without pulling it through the flexible ureteroscope. I removed the scope and the biopsy forceps together. It was sent for permanent in formalin. I inspected the entire ureter. Most of the ureter had abnormal mucosa. It looked like squamous metaplasia. Before removing the scope I used a basket to remove some stone debris from the kidney. Ultimately I placed a 6 Yi multi-length stent. The bladder was emptied and the cystoscope was removed. The patient tolerated everything well and left the room in satisfactory condition. SANTOS
== END 2021-02-13 13:50 | disposition home or self-care (01) ==
LOC: M SDC 07:43
PROVIDERS: ATTEND Urology
DX: N20.0 Calculus of kidney (principal); E11.9 Type 2 diabetes mellitus without complications; E78.49 Other hyperlipidemia; E03.9 Hypothyroidism, unspecified; Z79.84 Long term (current) use of oral hypoglycemic drugs; Z79.899 Other long term (current) drug therapy; Z88.8 Allergy status to other drugs, medicaments and biological substances
CPT/HCPCS: 52204; 52356; 74420; 88108; 88305; C1769; C2617; J0131; J0690; J1100; J1885; J2250; J2370; J2405; J3010; Q9961

== ENCOUNTER → 2021-03-15 | Outpatient (REF) | payer BC ==
[~2021-03-15] MED LIST changes: +CIPR250T3 PO; +HYDR-3713 PO; -LR 1,000 ML IV ONE; +OXYB5TAB10 PO; +PHEN-501 PO; -ceFAZolin SOD 2 GM in IV 1 EA IV ONE
== END ==
LOC: M SMT 17:14
PROVIDERS: ATTEND Urology
DX: R10.9 Unspecified abdominal pain (principal)

== ENCOUNTER → 2021-04-17 | Outpatient (CLI) | payer BC ==
--- NOTE | 2021-04-17 21:48 | REP ---
INDICATION: FLANK PAIN COMPARISON: None TECHNIQUE: Real time vazquez scale ultrasound examination using curved array transducer. FINDINGS: Right kidney measures 12.2 x 6.4 x 5.8 cm and demonstrates mild/moderate hydronephrosis/hydroureter. No obvious nephrolithiasis, renal cystic or mass lesion identified. Renal vascularity is relatively normal (RI 0.68). Left kidney measures 12.2 x 5.7 x 6.2 cm and is normal in contour, size, echogenicity and reniform shape. No hydronephrosis, nephrolithiasis, cystic or renal mass lesion. Bladder is normal in appearance. IMPRESSION: Moderate right renal hydronephrosis. <Electronically signed by Ismael Lennon > 04/17/21 [id number]
== END ==
LOC: M RAD 14:11
PROVIDERS: ATTEND Urology
DX: N13.30 Unspecified hydronephrosis (principal); R10.9 Unspecified abdominal pain

== ENCOUNTER → 2021-05-11 | Outpatient (CLI) | payer BC ==
[~2021-05-11] MED LIST changes: +ISOVUE-370 76% 100ML VIAL As Ordered ONE
--- NOTE | 2021-05-11 16:06 | REP ---
INDICATION: HEMATURIA, CALCULUS OF KIDNEY. COMPARISON: Comparison CT study December 26, 2020. TECHNIQUE: Pre contrast and dual phase post-contrast CT abdomen and pelvis imaging is acquired. The contrast enhancement dose is 100 mL of Isovue 370. At axial 3 mm images are re-formatted. Coronal and sagittal MPR images are provided. FINDINGS: Preliminary digital frame coverer radiograph is unremarkable. Normal bowel gas pattern. The lung bases are clear on axial CT images except for mild linear fibrosis in the left lower lobe. No pleural effusion is seen. There is moderate diffuse fatty infiltration of the liver with a fairly large area of fat sparing near the gallbladder and in the left lobe unchanged from December 26, 2020. No focal liver mass lesion is seen. There is a tiny accessory splenule. Spleen is otherwise unremarkable. No abnormality is noted in the pancreas. Normal adrenal glands are seen bilaterally. The gallbladder is unremarkable. There is moderate hydronephrosis affecting the right kidney. The previously noted mural thickening in the pelvis is resolved. No ureteral calculus is observed today. There is an intrarenal calculus in the right kidney collecting system similar in size to the calculus that was in the ureter on December 26, 2020 study. This measures 5 mm in greatest diameter on axial precontrast images. There is a 2nd tiny calculus adjacent to it. No hydronephrosis or intrarenal nephrolithiasis is noted on the left. No bladder calculus is visible. No bladder mass lesion is seen. There is a small quantity of air in the nondependent portion of the urinary bladder suggesting recent instrumentation. The there is a slightly delayed nephrogram on the right. On the delayed acquisition there is a slightly mottled pattern to the nephrogram on the right. A small subcentimeter cyst is seen in the left mid kidney. No renal mass lesion is observed on either side. No pelvic mass or adenopathy is seen. The uterus is surgically absent. No abdominal wall defect is seen. No bony destructive lesion is appreciated. IMPRESSION: Moderate right-sided hydronephrosis persists. There is an intrarenal calculus 5 mm in diameter in the right mid kidney collecting system. No ureteral stone is appreciated. There is less perinephric edema and the previously noted renal pelvic mural thickening pattern has resolved. A mildly obstructive nephrogram is noted on the right. Also noted is moderate fatty infiltration of the liver. Uterus is surgically absent. <Electronically signed by Wilmer Watt > 05/11/21 [id number]
== END ==
LOC: M RAD 14:40
PROVIDERS: ATTEND Urology
DX: R31.29 Other microscopic hematuria (principal); J84.10 Pulmonary fibrosis, unspecified; K76.0 Fatty (change of) liver, not elsewhere classified; N13.2 Hydronephrosis with renal and ureteral calculous obstruction
CPT/HCPCS: 74178; Q9967

== ENCOUNTER → 2021-05-22 | Outpatient (REF) | payer BC ==
[~2021-05-22] MED LIST changes: -ISOVUE-370 76% 100ML VIAL As Ordered ONE
[2021-05-22 17:12] LABS: APPEARANCE, URINE CLEAR (CLEAR); BILIRUBIN, URINE AUTO NEGATIVE (NEGATIVE); BLOOD, URINE BLOOD NEGATIVE (NEGATIVE); COLOR, URINE YELLOW (YELLOW); GLUCOSE, URINE (UA) AUTO NEGATIVE (NEGATIVE); KETONE, URINE AUTO NEGATIVE (NEGATIVE); LEUKOCYTE ESTERASE, URINE AUTO TRACE (NEGATIVE); NITRITE, URINE AUTO NEGATIVE (NEGATIVE); PROTEIN, URINE AUTO NEGATIVE (NEGATIVE); SPECIFIC GRAVITY URINE AUTO 1.012 (1.002-1.035); UROBILINOGEN, URINE AUTO 0.2 mg/dL (0.0-2.0)
[2021-05-22 17:14] LABS: BACTERIA, URINE AUTO NEGATIVE (NEGATIVE); RBC, URINE AUTO 0 /HPF (0-3); SQUAMOUS EPITHELIAL CELL UR AU 1 /HPF (0-6); WBC, URINE AUTO 1 /HPF (0-3)
[2021-05-23 12:38] LABS: PERCENT SATURATION 10.1 % (13.2-45.0)
== END ==
LOC: M LAB REF 16:27
PROVIDERS: ATTEND Internal Medicine
DX: Z01.818 Encounter for other preprocedural examination (principal)

== ENCOUNTER → 2021-08-21 | Outpatient (CLI) | payer BC ==
[~2021-08-21] MED LIST changes: +FUROSEMIDE 20MG/2ML VIAL (J1940) As Ordered ONE
== END ==
LOC: M RAD 09:13
PROVIDERS: ATTEND Urology
DX: N13.5 Crossing vessel and stricture of ureter without hydronephrosis (principal)
CPT/HCPCS: 78708; A9562; J1940

== ENCOUNTER → 2021-09-12 | Outpatient (REF) | payer BC ==
[~2021-09-12] MED LIST changes: -FUROSEMIDE 20MG/2ML VIAL (J1940) As Ordered ONE
[2021-09-12 12:47] LABS: APPEARANCE, URINE CLEAR (CLEAR); BACTERIA, URINE AUTO 2+ (NEGATIVE); BILIRUBIN, URINE AUTO NEGATIVE (NEGATIVE); BLOOD, URINE BLOOD NEGATIVE (NEGATIVE); COLOR, URINE STRAW (YELLOW); GLUCOSE, URINE (UA) AUTO NEGATIVE (NEGATIVE); KETONE, URINE AUTO NEGATIVE (NEGATIVE); LEUKOCYTE ESTERASE, URINE AUTO NEGATIVE (NEGATIVE); MUCUS, URINE SMALL (NEGATIVE); NITRITE, URINE AUTO NEGATIVE (NEGATIVE); PROTEIN, URINE AUTO NEGATIVE (NEGATIVE); RBC, URINE AUTO 1 /HPF (0-3); SPECIFIC GRAVITY URINE AUTO 1.005 (1.002-1.035); SQUAMOUS EPITHELIAL CELL UR AU 1 /HPF (0-6); UROBILINOGEN, URINE AUTO 0.2 mg/dL (0.0-2.0); WBC, URINE AUTO 2 /HPF (0-3)
== END ==
LOC: M LAB REF 12:23
PROVIDERS: ATTEND Internal Medicine
DX: Z01.818 Encounter for other preprocedural examination (principal); N13.30 Unspecified hydronephrosis

== ENCOUNTER → 2022-01-17 | Outpatient (CLI) | payer BC ==
[~2022-01-17] MED LIST changes: +FUROSEMIDE 20MG/2ML VIAL (J1940) As Ordered ONE
== END ==
LOC: M RAD 07:33
PROVIDERS: ATTEND Urology
DX: N13.5 Crossing vessel and stricture of ureter without hydronephrosis (principal)
CPT/HCPCS: 78708; A9562; J1940

== ENCOUNTER → 2022-05-23 | Outpatient (REF) | payer BC ==
[~2022-05-23] MED LIST changes: -FUROSEMIDE 20MG/2ML VIAL (J1940) As Ordered ONE
[2022-05-23 13:10] LABS: PERCENT SATURATION 20.3 % (13.2-45.0)
== END ==
LOC: M LAB REF 12:16
PROVIDERS: ATTEND Internal Medicine
DX: D64.9 Anemia, unspecified (principal)

== ENCOUNTER → 2022-06-06 | Outpatient (REF) | payer BC | LOC: M LAB REF 16:30 | PROVIDERS: ATTEND Internal Medicine | DX: L03.113 Cellulitis of right upper limb (principal) ==

== ENCOUNTER → 2023-01-14 | Outpatient (CLI) | payer BC | LOC: M RAD 13:43 | PROVIDERS: ATTEND Urology | DX: N20.0 Calculus of kidney (principal) ==

== ENCOUNTER → 2023-01-23 | Outpatient (CLI) | payer BC | LOC: M PLAIMG 13:11 | PROVIDERS: ATTEND Physician Assistant Medical | DX: N20.0 Calculus of kidney (principal); K76.0 Fatty (change of) liver, not elsewhere classified; K57.90 Diverticulosis of intestine, part unspecified, without perforation or abscess without bleeding; K42.9 Umbilical hernia without obstruction or gangrene ==

== ENCOUNTER → 2023-02-12 | Outpatient (REF) | payer BC | LOC: M LAB REF 12:30 | PROVIDERS: ATTEND Internal Medicine | DX: R10.11 Right upper quadrant pain (principal) ==

== ENCOUNTER → 2023-02-15 | Outpatient (CLI) | payer BC | LOC: M WHC 08:57 | PROVIDERS: ATTEND Internal Medicine | DX: R10.11 Right upper quadrant pain (principal); R16.0 Hepatomegaly, not elsewhere classified; K76.0 Fatty (change of) liver, not elsewhere classified ==